=== PATIENT | female | born 1935 | race Caucasian/White ===

== ENCOUNTER 2018-03-17 08:27 | Day surgery (SDC) | payer MEDICARE, OTHER ==
[2018-03-10 11:11] LABS: BASOPHILS % (AUTO) 0.4 % (0-1); EOSINOPHILS # (AUTO) 0.1 X10'3 (0-0.9); EOSINOPHILS % (AUTO) 1.7 % (0-6); LYMPHOCYTES # (AUTO) 1.6 X10'3 (1.1-4.8); LYMPHOCYTES % (AUTO) 24.3 % (21-51); MEAN CORPUSCULAR HEMOGLOBIN 30.9 PG (27.0-31.0); MEAN CORPUSCULAR HGB CONC 34.2 % (33.0-36.5); MEAN CORPUSCULAR VOLUME 90.3 FL (78-98); MEAN PLATELET VOLUME 8.7 FL (7.4-10.4); MONOCYTES # (AUTO) 0.8 X10'3 (0-0.9); MONOCYTES % (AUTO) 12.5 % (2-12); NEUTROPHILS % (AUTO) 61.1 % (42-75); PRE OP HEMATOCRIT 42.4 % (35.0-45.0); PRE OP HEMOGLOBIN 14.5 g/dL (12.0-16.0); PRE OP PLATELET COUNT 304 X10'3 (140-440); RED BLOOD COUNT 4.69 X10'6 (4.20-5.60); RED CELL DISTRIBUTION WIDTH 13.8 % (11.5-14.5)
[2018-03-10 11:18] LABS: CLARITY,URINE CLEAR (Clear); COLOR,URINE YELLOW (Yellow); GLUCOSE, URINE NEGATIVE (Neg); KETONES,URINE NEGATIVE (Neg); LEUKOCYTE ESTERASE ,URINE NEGATIVE (Neg); NITRITES, URINE NEGATIVE (Neg); OCCULT BLOOD,URINE NEGATIVE (Neg); PH,URINE 6.5 (4.8-8.0); PROTEIN,URINE NEGATIVE (Neg)
[2018-03-10 11:25] LABS: UA COLLECTION TYPE CLN CATCH MIDSTREAM
[2018-03-10 11:35] LABS: ALBUMIN 3.7 G/DL (3.4-5.0); ALBUMIN/GLOBULIN RATIO 0.9 (1.1-1.5); ALKALINE PHOSPHATASE 67 IU/L (46-116); BLOOD UREA NITROGEN 12 MG/DL (7-18); BUN/CREATININE RATIO 11.8 (6.6-38.0); CALCIUM 9.4 MG/DL (8.5-10.1); CHLORIDE 105 MMOL/L (99-107); CREATININE 1.02 MG/DL (0.40-0.90); PRE OP ALT 16 U/L (30-65); PRE OP ANION GAP 7 (8-16); PRE OP AST 24 U/L (10-37); PRE OP BILIRUB, TOTAL 0.6 MG/DL (0.0-1.0); PRE OP GLUCOSE 95 MG/DL (70-104); PRE OP POTASSIUM 4.4 MMOL/L (3.4-5.1); PRE OP SODIUM 141 MMOL/L (135-145); TOTAL CARBON DIOXIDE 29.5 MMOL/L (24-32); eGFR 52 ML/MIN
[~2018-03-17] VITALS: Ht 165.1 cm; Wt 69.9 kg
[2018-03-17] VITALS (10 sets, daily range): BP systolic 139–154; BP diastolic 71–92
[~2018-03-17 08:27] MED LIST: ASPI-416 PO; Cefazolin 2GM/50ML dext iso,osmotic IVPB IV ONE; DOCUMENT DATE & TIME OF BETA-BLOCKER PO ONE; ERGO500041 PO; LISI10TA4 PO; LOVA40TA2 PO; METO50TA7 PO; famotidine 20mg tablet PO ONE; ringers solution, lacted 1,000 ML IV SCH
[2018-03-17] MEDS ORDERED: LIDOcaine 1% (10mg/ml) 2ml vial ONE (08:40)
[2018-03-17] MEDS ORDERED: scopolamine 1.5mg patch.TD72 TD ONE (09:10)
[2018-03-17] MEDS ORDERED: ringers solution, lacted 1,000 ML IV SCH (09:16)
[2018-03-17] MEDS ORDERED: proCHLORperazine 10 MG/2 ml inj IV PRN (09:20)
[2018-03-17] MEDS ORDERED: ondansetron/PF 4mg/2ml inj IV PRN (09:20)
[2018-03-17] MEDS ORDERED: morphine 4 MG/ML inj SYRINge IV PRN ×2 (09:20)
[2018-03-17] MEDS ORDERED: meperidine/PF 25mg/ml syringe IV PRN ×3 (09:20)
[2018-03-17] MEDS ORDERED: fentaNYL/PF 50MCG/1 ML 2ML syringe ONE (09:21)
[2018-03-17] MEDS ORDERED: midazolam 2 mg/2 ml injection ONE (09:21)
[2018-03-17] MEDS ORDERED: propofol inj 20 ML IV ONE (10:47)
[2018-03-17] MEDS ORDERED: LIDOcaine 2% (20mg/ml) 5ml vial ONE (10:47)
[2018-03-17] MEDS ORDERED: ondansetron/PF 4mg/2ml inj ONE ×2 (10:47→11:27)
[2018-03-17] MEDS ORDERED: BUPIVAcaine/PF 2.5mg/ml (0.25%) 10ml vial ONE (11:14)
[2018-03-17] MEDS ORDERED: ceFAZolin 1000mg inj ONE (11:14)
[2018-03-17] MEDS ORDERED: aprepitant 40mg capsule PO ONE (11:15)
[2018-03-17] MEDS ORDERED: LIDOcaine 1% 30ml preserv. free vial ONE (11:24)
[2018-03-17] MEDS ORDERED: dexamethasone sod phosphate 10mg/ml inj ONE (11:27)
== END 2018-03-17 13:48 | disposition home or self-care (01) ==
LOC: PAS 08:27
PROVIDERS: ATTEND Surgery
DX: K42.9 Umbilical hernia without obstruction or gangrene (principal); K66.8 Other specified disorders of peritoneum; I10 Essential (primary) hypertension; E78.5 Hyperlipidemia, unspecified; Z95.0 Presence of cardiac pacemaker; Z87.891 Personal history of nicotine dependence; Z85.3 Personal history of malignant neoplasm of breast; Z87.440 Personal history of urinary (tract) infections; Z88.5 Allergy status to narcotic agent; Z88.6 Allergy status to analgesic agent; Z92.3 Personal history of irradiation; Z79.82 Long term (current) use of aspirin; Z90.49 Acquired absence of other specified parts of digestive tract; Z90.89 Acquired absence of other organs; Z79.899 Other long term (current) drug therapy; Z98.890 Other specified postprocedural states
CPT/HCPCS: 36415; 49585; 80053; 81003; 84443; 85025; 93005; A6449; C1781; J0690; J1100; J2001; J2250; J2405; J2704; J3010; J3490; J7120; J8501; 88302; A7000

== ENCOUNTER 2019-06-16 09:40 | Inpatient (IN) | payer MEDICARE, OTHER ==
[~2019-06-16] VITALS: Ht 165.1 cm; Wt 72.8 kg
[~2019-06-16 09:40] MED LIST changes: -Cefazolin 2GM/50ML dext iso,osmotic IVPB IV ONE; -DOCUMENT DATE & TIME OF BETA-BLOCKER PO ONE; -famotidine 20mg tablet PO ONE; -ringers solution, lacted 1,000 ML IV SCH
[2019-06-16 10:24] LABS: BASOPHILS % (AUTO) 0.8 % (0-1); EOSINOPHILS # (AUTO) 0.1 X10'3 (0-0.9); EOSINOPHILS % (AUTO) 1.2 % (0-6); HEMATOCRIT 41.5 % (35.0-45.0); LYMPHOCYTES # (AUTO) 1.3 X10'3 (1.1-4.8); LYMPHOCYTES % (AUTO) 22.1 % (21-51); MEAN CORPUSCULAR HEMOGLOBIN 31.1 PG (27.0-31.0); MEAN CORPUSCULAR HGB CONC 33.7 g/dL (33.0-36.5); MEAN CORPUSCULAR VOLUME 92.3 FL (78-98); MEAN PLATELET VOLUME 8.7 FL (7.4-10.4); MONOCYTES % (AUTO) 15.9 % (2-12); NEUTROPHILS # (AUTO) 3.7 X10'3 (1.8-7.7); PLATELET COUNT 369 X10'3 (140-440); RED CELL DISTRIBUTION WIDTH 13.7 % (11.5-14.5); WHITE BLOOD COUNT 6.1 X10'3 (4.5-11.0)
[2019-06-16 10:36] LABS: PARTIAL THROMBOPLASTIN TIME 28 SECONDS (22-32)
[2019-06-16 10:37] LABS: ALANINE AMINOTRANSFERASE 22 U/L (12-78); ALBUMIN 3.6 G/DL (3.4-5.0); ALBUMIN/GLOBULIN RATIO 0.8 (1.1-1.5); ALKALINE PHOSPHATASE 67 IU/L (46-116); ANION GAP 7 (8-16); ASPARTATE AMINO TRANSFERASE 16 U/L (10-37); BILIRUBIN,TOTAL 0.6 MG/DL (0.1-1.0); BLOOD UREA NITROGEN 10 MG/DL (7-18); BUN/CREATININE RATIO 13.2 (6.6-38.0); CALCIUM 9.4 MG/DL (8.5-10.1); CHLORIDE 108 MMOL/L (99-107); CREATININE 0.76 MG/DL (0.40-0.90); GLUCOSE 97 MG/DL (70-104); POTASSIUM 4.1 MMOL/L (3.5-5.1); SODIUM 143 MMOL/L (135-145); TOTAL CARBON DIOXIDE 28.1 MMOL/L (24-32); eGFR 72 ML/MIN
[2019-06-16 10:44] LABS: TOTAL CELLS COUNTED 100
[2019-06-16 10:45] LABS: PLATELET ESTIMATE NORMAL
[2019-06-16] MEDS ORDERED: enoxaparin 100mg/ml syringe SUBCUT ONE (12:20)
[2019-06-16] MEDS ORDERED: potassium CL 10mEq/100ml bag 100 ML IV PRN ×2 (12:25)
[2019-06-16] MEDS ORDERED: magnesium Cl slow-release 64mg tablet PO PRN (12:25)
[2019-06-16] MEDS ORDERED: potassium Cl 20 mEq SR tablet PO PRN ×2 (12:25)
[2019-06-16] MEDS ORDERED: morphine 2 MG/ML inj. syringe IV PRN (12:25)
[2019-06-16] MEDS ORDERED: magnesium 2GM in 50ml NS 50 ML IV PRN (12:25)
[2019-06-16] MEDS ORDERED: ondansetron/PF 4mg/2ml inj IV PRN (12:25)
[2019-06-16] MEDS ORDERED: magnesium 4gm in 100ml NS 100 ML IV PRN (12:25)
[2019-06-16] MEDS ORDERED: heparin 25,000 UNIT/250ml bag 250 ML IV SCH (12:41)
[2019-06-16] MEDS ORDERED: heparin 10,000 units/1 ML INJ IV PRN (12:45)
[2019-06-16] MEDS ORDERED: heparin 10,000 units/1 ML INJ IV ONE (12:45)
[2019-06-16 13:51] VITALS: BP 135/69
--- NOTE | 2019-06-16 13:55 | NUR ---
Patient arrived on unit, VSS, heparin drip going at 800units/hr, PIV functioning well. patient reports no pain at this time. Telemetry applied. Patient stable, will continue to monitor.
[2019-06-16] MEDS ORDERED: LIDOcaine/PRILOcaine 5gm cream TP ONE (15:10)
[2019-06-16 16:25] VITALS: BP 136/88
[2019-06-16] MEDS ORDERED: fentaNYL/PF 50MCG/1 ML 2ML syringe ONE (16:50)
[2019-06-16] MEDS ORDERED: heparin 1,000unit/ml 10ml vial 10 ML ONE (16:50)
[2019-06-16] MEDS ORDERED: iohexol 350 MG/ML 50ML vial IV ONE (16:50)
[2019-06-16] MEDS ORDERED: midazolam 2 mg/2 ml injection ONE (16:50)
[2019-06-16] MEDS ORDERED: LIDOcaine 1% 30ml preserv. free vial ONE (16:50)
[2019-06-16] MEDS ORDERED: iohexol 350MG/ML 100ml bottle IV ONE ×2 (16:51→17:43)
[2019-06-16] MEDS ORDERED: nitroGLYCERIN-Tridil 50MG/D5W 250 ML IV ONE (16:51)
--- NOTE | 2019-06-16 17:07 | NUR ---
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 Sweet's orders. Patients daughter at the bedside and is going with the patient.
[2019-06-16] MEDS ORDERED: verapamil 2.5 mg/ml inj IV ONE (17:15)
--- NOTE | 2019-06-16 18:19 | NUR ---
Problems reprioritized. Patient report given, questions answered & plan of care reviewed with ROSSANA Du.
[2019-06-16] MEDS ORDERED: clopidogrel 300mg tablet ONE (18:36)
[2019-06-16 19:00] VITALS: BP_SYST 150; BP_SYST 177; BP_DIAS 76; BP_DIAS 81
[2019-06-16] MEDS ORDERED: cyclobenzaprine 10mg tablet PO PRN (19:25)
[2019-06-16] MEDS ORDERED: HYDROcodone/acetaminophen 10/325mg tab PO PRN ×2 (19:25)
[2019-06-16] MEDS ORDERED: OXAZEpam 15mg capsule PO PRN (19:25)
[2019-06-16] MEDS ORDERED: proCHLORperazine 10 MG/2 ml inj IV PRN (19:25)
[2019-06-16] MEDS ORDERED: magnesium hydroxide 30ml (MOM) UD suspension PO PRN (19:25)
[2019-06-16] MEDS ORDERED: acetaminophen 325mg tablet PO PRN (19:25)
[2019-06-16] MEDS: heparin, porcine 5000 units/ml vial SQ SCH (19:53)
[2019-06-16 20:00] VITALS: BP_SYST 145; BP_SYST 167; BP_DIAS 76; BP_DIAS 77
[2019-06-16] MEDS ORDERED: nitroGLYCERIN-Tridil 50MG/D5W 250 ML IV SCH (20:05)
[2019-06-16] MEDS: ondansetron/PF 4mg/2ml inj IV PRN (20:24)
[2019-06-16] MEDS: docusate sod 100mg capsule PO SCH (20:46)
[2019-06-16] MEDS: normal saline 1000ml 1,000 ML IV SCH (20:46)
[2019-06-16 21:00] VITALS: BP_SYST 133; BP_SYST 168; BP_DIAS 72; BP_DIAS 79
[2019-06-16] MEDS ORDERED: famotidine 20mg tablet PO SCH (21:00)
--- NOTE | 2019-06-16 21:32 | NUR ---
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 I have received report from Cj RN and had the opportunity to ask questions and assume patient care. Pt denies pain or nausea. IV's transfusing though PIV in L FA. Sheath site soft, no obvious signs/symptoms of hematoma, tranduced to the ekg monitor. 1914: Pt's daughter at bedside. Update given, questions answered. All belonging sent home with patient's daughter.
[2019-06-16 22:00] VITALS: BP_SYST 133; BP_SYST 160; BP_DIAS 70; BP_DIAS 74
[2019-06-17] VITALS (18 sets, daily range): BP systolic 99–161; BP diastolic 58–92
[2019-06-17] MEDS: ondansetron/PF 4mg/2ml inj IV PRN (02:06)
--- NOTE | 2019-06-17 03:47 | NUR ---
Late entry 0235: arteriazl Femostop placed after hemo Addendum: 06/17/19 at 0352 by Beth Ruffin RN Amend note: Arterial sheath removed per MD order. Femostop placed after hemostasis achieved. No obvious signs,symptoms of hematoma or bleeding. Will continue to monitor.
[2019-06-17] MEDS: normal saline 1000ml 1,000 ML IV SCH ×2 (04:40→11:18)
[2019-06-17 05:13] LABS: ALBUMIN 2.7 G/DL (3.4-5.0); ANION GAP 6 (8-16); BLOOD UREA NITROGEN 8 MG/DL (7-18); BUN/CREATININE RATIO 12.3 (6.6-38.0); CALCIUM 7.7 MG/DL (8.5-10.1); CHLORIDE 111 MMOL/L (99-107); CHOL/HDL RATIO 4.3 (0.00-4.99); CHOLESTEROL 152 MG/DL (0-200); CREATININE 0.65 MG/DL (0.40-0.90); GLUCOSE 124 MG/DL (70-104); HDL CHOLESTEROL 35 MG/DL (35-60); LDL CHOLESTEROL 106 MG/DL (50-100); MAGNESIUM 1.6 MG/DL (1.5-2.4); POTASSIUM 4.1 MMOL/L (3.5-5.1); SODIUM 143 MMOL/L (135-145); TOTAL CARBON DIOXIDE 26.2 MMOL/L (24-32); TRIGLYCERIDES 83 MG/DL (20-135); eGFR 87 ML/MIN
[2019-06-17 05:23] LABS: BASOPHILS % (AUTO) 0.3 % (0-1); EOSINOPHILS % (AUTO) 0.1 % (0-6); HEMATOCRIT 31.4 % (35.0-45.0); HEMOGLOBIN 10.6 g/dl (12.0-16.0); LYMPHOCYTES # (AUTO) 0.4 X10'3 (1.1-4.8); LYMPHOCYTES % (AUTO) 7.8 % (21-51); MEAN CORPUSCULAR HEMOGLOBIN 31.4 PG (27.0-31.0); MEAN CORPUSCULAR HGB CONC 33.7 g/dL (33.0-36.5); MEAN CORPUSCULAR VOLUME 93.3 FL (78-98); MEAN PLATELET VOLUME 8.6 FL (7.4-10.4); MONOCYTES # (AUTO) 0.4 X10'3 (0-0.9); MONOCYTES % (AUTO) 7.7 % (2-12); NEUTROPHILS # (AUTO) 4.5 X10'3 (1.8-7.7); NEUTROPHILS % (AUTO) 84.1 % (42-75); PLATELET COUNT 244 X10'3 (140-440); RED BLOOD COUNT 3.36 X10'6 (4.20-5.60); RED CELL DISTRIBUTION WIDTH 13.7 % (11.5-14.5); WHITE BLOOD COUNT 5.4 X10'3 (4.5-11.0)
--- NOTE | 2019-06-17 05:47 | NUR ---
Pt resting comfortably, femostop in place,no obvious signs,symptoms of hematoma
--- NOTE | 2019-06-17 06:47 | NUR ---
Problems reprioritized. Patient report given, questions answered & plan of care reviewed with Aiden TRACY.
--- NOTE | 2019-06-17 06:48 | NUR ---
Patient in room CICU 2013. I have received report from ROSSANA Campos and had the opportunity to ask questions and assume patient care.
[2019-06-17] MEDS ORDERED: K and/or MAG REPLACEMENT MC SCH (08:00)
[2019-06-17] MEDS ORDERED: clopidogrel 75mg tablet PO SCH (08:00)
[2019-06-17] MEDS ORDERED: aspirin 81mg tab.chew PO SCH (08:00)
[2019-06-17] MEDS: heparin, porcine 5000 units/ml vial SQ SCH (09:01)
[2019-06-17] MEDS: docusate sod 100mg capsule PO SCH (09:01)
[2019-06-17] MEDS ORDERED: CLOP75TA35 PO (16:12)
[2019-06-17] MEDS ORDERED: ATOR10TA87 PO (16:19)
--- NOTE | 2019-06-17 17:38 | NUR ---
Discharged. Educated on meds and follow-up. Educated on angiogram care. PIV taken out. Medicare DC signed and all other documents signed. Wheeled down on wheelchair. Stable for DC per MD. Meds called into [facility] on [address].
== END 2019-06-17 17:00 | disposition home or self-care (01) | DRG 247 ==
LOC: ER 09:41 → PCU 3S 13:53 → CICU 2S 19:09 → PCU 3S 19:09 → EDBEDREQTM 19:16 → CMPBEDREQ 19:40 → ER 20:01 → CICU 2S 20:07
PROVIDERS: ADMIT Internal Medicine; ATTEND Internal Medicine
PROC: 027034Z Dilation of Coronary Artery, One Artery with Drug-eluting Intraluminal Device, Percutaneous Approach (ICD-10-PCS; principal; 2019-06-16)
PROC: 4A023N7 Measurement of Cardiac Sampling and Pressure, Left Heart, Percutaneous Approach (ICD-10-PCS; 2019-06-16)
PROC: B2111ZZ Fluoroscopy of Multiple Coronary Arteries using Low Osmolar Contrast (ICD-10-PCS; 2019-06-16)
PROC: B2151ZZ Fluoroscopy of Left Heart using Low Osmolar Contrast (ICD-10-PCS; 2019-06-16)
DX: I21.4 Non-ST elevation (NSTEMI) myocardial infarction (principal); E78.5 Hyperlipidemia, unspecified; I10 Essential (primary) hypertension; I48.0 Paroxysmal atrial fibrillation; I44.1 Atrioventricular block, second degree; I49.5 Sick sinus syndrome; R79.89 Other specified abnormal findings of blood chemistry; Z79.82 Long term (current) use of aspirin; Z79.899 Other long term (current) drug therapy; Z88.6 Allergy status to analgesic agent; Z88.8 Allergy status to other drugs, medicaments and biological substances; I25.2 Old myocardial infarction; Z85.3 Personal history of malignant neoplasm of breast; Z95.0 Presence of cardiac pacemaker; Z90.49 Acquired absence of other specified parts of digestive tract
CPT/HCPCS: 93458; 96365; 96366; 96376; 99285; C9600; 36415; 71045; 76937; 80048; 80053; 80061; 83735; 84484; 85025; 85347; 85610; 85730; 87081; 93005; 99152; 99153; A4620; A6258; C1725; C1769; C1874; C1894; G0378; J0780; J1644; J1650; J2001; J2250; J2405; J3010; J3490; J7030; Q9967